=== PATIENT | male | born 1970 | race Caucasian/White ===

== ENCOUNTER 2022-02-09 13:04 | Outpatient (CLI) | payer OTHER, SELFPAY ==
--- OUTSIDE RECORDS SUMMARY | 2022-02-09 13:07 | XMS_ITS | Clinical Summary ---
:1970 Author Organization [facility] Address [address] [place] [address] Care Team Providers Name Role Phone Unavailable Primary Care Provider Unavailable Source Comments Patient records contain information from all sites at [facility]. For routine questions regarding patient records, call [phone] during business hours, M-F 8:00 AM - 5:00 PM Central Time. Record requests for emergency care only can be directed to [phone] at any time.[facility] Social History Tobacco Use Types Packs/Day Years Used Date Smoking Tobacco: Never Assessed Sex Assigned at Date Recorded Not on file Plan of Treatment Health Maintenance Due Date Last Done Comments CT Colonography 1970 Cologuard 1970 Colonoscopy 1970 Colorectal Cancer Screening 1970 FIT 1970 Fasting Glucose for Diabetes 1970 Screening HIV Screening 1970 Hepatitis B Vaccines (1 of 3 1969 - 3-dose series) Hepatitis C Screening 1970 Lipid (Cholesterol) Screening 1970 Zoster Vaccines (1 of 2) 12/01/2019 COVID-19 Vaccine (3 - Booster 11/12/2020 09/17/2020, for Pfizer series) 08/27/2020 Depression Screening (Annual 04/12/2021 PHQ-2) Influenza Vaccine (#1) 2022 01/09/2021, 06/13/2020, 01/23/2019 DTaP,Tdap,and Td Vaccines (2 01/07/2026 01/08/2016, - Td or Tdap) 06/29/2002 Pneumococcal vaccine (0-64 Aged Out No lo nger eligible based years) on patient's age to complete this to [facility] Insurance Payer Benefit Plan Subscriber ID Effective Dates Phone Address Type / Group [facility] [id number] 2021-Presen [phone] [address] Medicaid HMO t [address] [place] [address]
--- OUTSIDE RECORDS SUMMARY | 2022-02-09 13:07 | XMS_ITS | Clinical Summary ---
:1970 Author Organization [facility] [place] [address] Care Team Providers Name Role Phone Porsha Mariein Primary Care Provider Unavailable Allergies Active Allergy Reactions Severity Noted Date Comments Atorvastatin Other - Describe In Comment Field Medium 014 Myalgia Medications Medication Sig Dispensed Refills Start Date End Date Status omeprazole (PRILOSEC) 40 Take 1 capsule 30 capsule 11 7 Active mg Delayed-Release by mouth once capsuleIndications: daily. Take Gastroesophageal reflux 30-60 minutes disease, esophagitis before a presence not specified meal/food once a day. escitalopram oxalate Daily 0 12/25/2019 Active (LEXAPRO) 20 mg tablet Active Problems Problem Noted Date Sensorineural hearing loss, bilateral 02/11/2021 Chemical dependency - Methamphetamine 08/17/2014 Overview: He went through treatment June and 2014. No opiates. Bipolar affective disorder 12/04/2013 Anxiety 12/04/2013 Overview: Rule out OCD Vitamin D deficiency 09/13/2013 Overview: 12.5 on 09/12/13. Started on replacement t herapy. Should be rechecked in 8 weeks. Pure hypercholesterolemia 01/26/2012 Reactive airway disease 11/12/2011 GE reflux 11/12/2011 Overview: EGD 03/2012 reflux, no follow up needed EGD 12/2016 reflux Chest discomfort 11/05/2011 Tobacco abuse 11/05/2011 Family history of ischemic heart disease 11/05/2011 Resolved Problems Problem Noted Date Resolved Date Other diseases of lung, not elsewhere classified 02/25/2007 11/12/2011 EXAMINATION, ROUTINE MEDICAL 2000 11/12/2011 Encounters Date Type Specialty Care Team Description 12/25/2021 Office Visit [facility] (Dome in ear MD (Right)) 12/25/2021 Office Visit [facility]ie [facility] (Dome in right ear , 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) 12/25/2021 Travel from Last 3 Months Immunizations Name Administration Dates Next Due Td (Age >=7 Years) 06/29/2002 Tdap 01/08/2016 Family History Medical History Relation Name Comments Diabetes Father Hypertension Father Heart Disease Maternal Grandfather OR Cancer-breast Maternal Grandmother Cancer Paternal Grandmother Relation Name Status Comments Father Maternal Grandfather (Age 72) OR Maternal Grandmother cancer Paternal Grandfather alcoholism Paternal Grandmother cancer Social History Tobacco Use Types Packs/Day Years Used Date Light Tobacco Smoker Cigarettes 0.25 Smokeless Tobacco: Never Used Tobacco Cessation: Counseling Given: Yes Comments: 5 or 6 cigs per day Alcohol Use Standard Drinks/Week Comments Yes 0.8 (1 standard drink = 0.6 oz pure alco hol) rarely Sex Assigned at Date Recorded Not on file Obstetrics History Last Filed Vital Signs Vital Sign Reading Time Taken Comments Blood Pressure 156/88 03/26/2020 4:42 PM [employer] Pulse 90 03/26/2020 4:42 PM [facility] Temperature 36.7 ??C (98 ??F) 03/26/2020 4:49 PM [facility] [employer] Respiratory Rate 20 03/26/2020 4:42 PM [facility] Oxygen Saturation 98% 03/26/2020 4:42 PM [employer] Inhaled Oxygen Concentration - - Weight 99.8 kg (220 lb) 03/26/2020 4:38 PM [facility] [employer] Height 185.4 cm (6' 1) 03/26/2020 4:38 PM [facility] Body Mass Index 29.03 03/26/2020 4:38 PM [employer] Plan of Treatment Upcoming Encounters Date Type Specialty Care Team Description 02/19/2022 Office Visit Billie Lyle [facility] [address] [place], [place] [address] (Wo rk) Health Maintenance Due Date Last Done Comments Hepatitis C screening for age 0812/01/1987 18-79 Colonoscopy through age 75 2014 Lipids for age 45-75 03/11/2017 03/11/2012, 03/11/2012, 11/06/2011 Depression screening for age 12+ 10/15/2017 10/15/2016 BMI (ht and wt on same day) for 11/25/2019 11/24/2018, 07/09/2016, age 18+ 10/15/2016, Additional history exists Zoster (shingles) series for age 0812/01/2019 50+ (1 of 2) COVID-19 vaccine series (3 - 11/12/2020 09/17/2020, 021 Booster for Pfizer series) Influenza for age 50-64 12/11/2021 Tetanus booster 01/07/2026 01/08/2016, 06/29/2002 Tdap Completed 01/08/2016 Medical Devices Implanted Type Area System Architect Device Shelf Model / Identifier Expiration Serial / Date Lot Stent Uret [id number] - [id number] Left: [employer] [id number] / Implanted: Qty: 1 on 08/09/2014 at [facility] [employer] / [id number] Results Not on filefrom Last 3 Months Insurance Payer Benefit Plan / Subscriber ID Effective Dates Phone Addre ss Type Group [employer] OF [id number] 2014-Presen [address] [facility] [place] [address] [employer] [id number] 2021-Presen [address] [place] [address] [facility] [id number] 2021-Presen [address] [place] [address] [phone] (Home) [place] [id number] [employer] Personal/Family Self 1970 [phone] (Home) [place] [phone] [employer] Motor Vehicle Self 1970 [id number] (Home) [place] [phone] [employer] [facility] Employer 04/12/[address] (Home) [place] [phone] [id number] (Work) [employer] Workers Comp Self 1970 [id number] (Home) [place] [id number] Advance Directives Latest Code Status on File Code Status Date Activated Date Inactivated Comments Full Code 11/05/2011 2:34 PM 11/06/2011 2:34 PM Care Teams Sap Ppm Consultant Relationship Specialty Start Date End Date Mariano Marie PCP - General 03/26/20
--- OUTSIDE RECORDS SUMMARY | 2022-02-09 13:07 | XMS_ITS | Encounter Summary ---
:[address] [facility] Address [address] [place] [address] Care Team Providers Name Role Phone Unavailable Primary Care Provider Unavailable Encounter Details Date Type Department Care Team Description 08/07/2020 Orders Only [facility] Sa rowan Camacho M.D. [address] [place], [place] [phone] (Wo rk) Social History Tobacco Use Types Packs/Day Years Used Date Smoking Tobacco: Never Assessed Sex Assigned at Date Recorded Not on file documented as of this encounter Plan of Treatment Not on filedocumented as of this encounter Visit Diagnoses Not on filedocumented in this encounter
--- NOTE | 2022-02-09 13:45 | MR_ITS ---
[facility] [address] [facility] [address] Phone:?[phone] Fax:?[phone] Referring Physician Information: Joby Kent M.D. [address] [employer] [address] Phone:?[phone] Fax:?[phone] Patient:Taina aLw D.O.B:?1970 Sex:?Male Phone:?[phone] [facility] MRN:?[id number] Exam Date:?02/09/2022 ? EXAM: MRI of the LEFT SHOULDER, without contrast CLINICAL INFORMATION: Male, 51 years old, with left shoulder pain. INDICATION: Evaluate for internal derangement. PRIOR SURGERY: History of subacromial decompression. PLAIN FILMS: None available. COMPARISONS: No prior MRIs available. TECHNICAL INFORMATION: Using a 1.5T MR scanner and a localizing surface coil: coronal obliques: PD, T2, STIR sagittal obliques: PD, T2 axials: PD, T2 SEDATION: None CONTRAST: None FINDINGS: Bones: Proximal humerus: No fracture or marrow edema/pathology. No humeral Hill-Sachs or reverse Hill-Sachs lesion/impaction or contusion. Glenoid: No fracture or marrow edema/pathology. No osseous Bankart lesion. Rotator cuff and muscles/tendons: Supraspinatus: Mild supraspinatus tendinopathy, with bursal surface fraying, but without discrete tear. Infraspinatus: No tendinopathy, tear or atrophy. Teres minor: No tendinopathy, tear or atrophy. Subscapularis: Moderate tendinopathy of the superior distal subscapularis with partial-thickness articular surface tearing over an area measuring 2.1 cm superoinferior by 2.4 cm mediolateral and involving approximately 50% of the tendon thickness (sagittal T2 series 8 image 18 and axial PD series 3 image 47). Deltoid: No strain or atrophy. Coracoacromial arch: Acromion morphology: Status post anterior acromioplasty for subacromial decompression, with good result. No os acromiale. Acromiohumeral space: The acromiohumeral space is decompressed.. Coracohumeral space: The coracohumeral space is within normal limits. Acromioclavicular joint: Joint: Status post AC joint resection for subacromial decompression, with good result. Ligaments: Coracoclavicular ligaments are intact. Bursae: Subacromial-subdeltoid: Mild-moderate subacromial-subdeltoid bursal thickening/edema. Subcoracoid: No convincing subcoracoid bursal thickening/bursitis. Biceps tendon: The long head of the biceps tendon is present within the bicipital groove. Mild tendinopathy and fraying of the intra-articular biceps long head tendon, without discrete split/tear (sagittal PD series 7 images 8- 16). Glenohumeral joint: Effusion/cyst: No significant glenohumeral joint effusion. Articular cartilage: Humeral head: Mild thinning of the articular cartilage throughout the medial aspect of the humeral head with minimal inferomedial marginal osteophytosis. Glenoid: Mild thinning of the glenoid articular cartilage, with mild posterior marginal osteophytosis. Loose bodies: No discrete intra-articular body within the joint. Labrum:?Intrasubstance degeneration fraying of the superior and anterior labrum, which is of doubtful clinical significance. No paralabral cyst. Inferior glenohumeral ligament/axillary pouch:?Intact. The axillary pouch is normal in thickness and signal. No evidence of adhesive capsulitis or capsular injury. IMPRESSION: 1. Moderate subscapularis tendinopathy with a 2.1 x 2.4 cm area of intermediate grade partial-thickness articular surface tearing along the superior myotendinous junction. 2. Mild supraspinatus tendinopathy, without tear. 3. Mild tendinopathy of the intra-articular biceps long head tendon, without split/tear. 4. Mild osteoarthritis of the glenohumeral joint. 5. Intrasubstance degeneration fraying of the superior and anterior labrum, which is of doubtful clinical significance. 6. Status post anterior acromioplasty and AC joint resection for subacromial decompression, with good result. However, there is mild-moderate subacromial- subdeltoid bursal inflammation. BC Electronically signed on 02/09/2022 4:13:00 PM by Torsten Kim M.D.
== END 2022-02-09 13:05 | disposition home or self-care (01) ==
PROVIDERS: PCP Family Medicine; Visit Provider Family Medicine
DX: M25.512 Pain in left shoulder (principal); S43.432A Superior glenoid labrum lesion of left shoulder, initial encounter; M19.012 Primary osteoarthritis, left shoulder; G56.92 Unspecified mononeuropathy of left upper limb; M75.52 Bursitis of left shoulder
CPT/HCPCS: 73221

== ENCOUNTER 2022-07-10 09:45 | Outpatient (RCR) | payer OTHER, SELFPAY | END 2022-10-29 23:59 | disposition home or self-care (01) | PROVIDERS: PCP Family Medicine; Visit Provider Orthopaedic Surgery | DX: M19.012 Primary osteoarthritis, left shoulder (principal); Z51.89 Encounter for other specified aftercare | CPT/HCPCS: 97012; 97110; 97140; 97162 ==

== ENCOUNTER 2022-10-20 12:50 | Emergency (ER) | payer MEDICAID, SELFPAY ==
[2022-10-20] VITALS (12 sets, daily range): BP systolic 110–144; BP diastolic 63–93; PULSE 57–74; RESP 11–16; TEMP 36.5; O2SAT 95–98; BMI 32.1
--- NOTE | 2022-10-20 14:54 | CRLHL7_ITS ---
For Patients: As a result of the Cures Act, medical imaging exams and procedure reports are released immediately into your electronic medical record. You may view this report before your referring provider. If you have questions, please contact your health care provider. INDICATION: Chest pressure. TECHNIQUE: Chest 1 views. COMPARISON: None. FINDINGS: Underpenetration Lungs: Normal lung volume. No consolidation. The tracheobronchial tree and hilar structures are unremarkable. Pleura: No pleural effusion or pneumothorax. Heart and Mediastinum: Normal heart size. The great vessels of the thorax are unremarkable. Bones: No acute displaced osseous process. IMPRESSION: No consolidation. Dictated by Bill Soto MD @ 10/20/2022 4:12:47 PM (Electronically Signed)
[2022-10-20 15:43] LABS: Basophils Percent Auto 0.5 % (0.0-3.0); Eosinophils Percent Auto 2.5 % (0.0-7.0); Hemoglobin* 15.5 gm/dL (13.5-17.5); Immature Granulocytes Pct Auto 0.1 %; Lymphocytes Percent Auto 32.9 % (20-44); Mean Corpuscular HGB Conc 33 gm/dL (32-36); Mean Corpuscular Hemoglobin 29 pg (26-34); Mean Corpuscular Volume 87 fL (80-100); Platelet Count* 320 K/uL (140-440); Red Blood Count 5.41 m/uL (4.30-5.90)
[2022-10-20 15:44] LABS: Slide Review Reflex No
[2022-10-20 15:46] LABS: Blood Urea Nitrogen* 18 mg/dL (7-30); Calcium* 9.1 mg/dL (8.4-10.6); Carbon Dioxide* 28 mmol/L (20-32); Chloride* 103 mmol/L (96-114); Estimated Glomerular Filt Rate 91 ml/min; Glucose* 94 mg/dL (60-115); Potassium* 3.7 mmol/L (3.6-5.1); Sodium* 139 mmol/L (135-149)
[2022-10-20 15:47] LABS: Troponin I* < 0.01 ng/mL (0.01-0.04)
[2022-10-20 15:49] LABS: D Dimer Quantitative* 0.37 ug/ml (0.00-0.50)
[2022-10-20 16:01] LABS: NT Pro B Type NatriureticPept* < 20 pg/mL
--- NOTE | 2022-10-20 22:14 | ED.GENADULT ---
HPI - General Adult General Chief complaint: Chest Pain Stated complaint: Chest pain Time Seen by Provider: 10/20/22 15:02 History of Present Illness HPI narrative: [employer] Seen at time where Internet is down and limited patient information available 51-year-old man presenting to the emergency department with concern of chest pressure.? Over last 3-4 days in particular has been rather easily fatigued.? Feels little short of breath.? This isn't like his typical asthma exacerbation.? Does have a cardiac history in the sense that he is noted to have had an UT before.? Does not sound as though any interventions were done.? He describes concurrently a tightness in his mid chest like there is a animal technician on it.? He will intermittently get a singh of tingling this that spreads to his chest go through his whole body.? At this point he says ?I know it sounds like I am on drugs but I have not done that in a while?.? Apparently history of methamphetamine use/abuse.? Sober again over the last year.? Does endorse a history of heartburn and medications for this but this is not what he has been feeling.? At rest at this time he is not short of breath.? No fever or cough or cold symptoms otherwise. Past medical does include GERD.? Reportedly history of UT.? Methamphetamine abuse. Medications include Protonix Statin allergy Vitals are noted blood pressure a bit elevated at 144/87 pulse ox 97% Is pleasant.? Good energy.? Large man.? Jovial.? Breathing easily.? Lungs appear to be clear.? There is no JVD.? Not able to reproduce discomfort to palpation over the chest.? Heart is distant but in a regular rate and rhythm. I reviewed EKG without prior for comparison showing normal sinus rhythm rate of 73.? I do not appreciate acute ischemic changes. Ordered chest x-ray and labs. ?Differential does include pulmonary embolus, pneumothorax, infection, ischemic cardiac event, anxiety, dysrhythmia.? 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 Related Data Home Medications Medication Instructions Recorded Confirmed fluticasone propionate 50 2 spray intranasal DAILY 11/03/22 11/03/22 mcg/actuation nasal spray,suspension Previous Rx's Medication Instructions Recorded omeprazole 40 mg capsule,delayed 40 mg PO DAILY #90 caps 11/03/22 release varenicline 0.5 mg (11)-1 mg (42) See Rx Instructions PO PER PKG DIR 11/03/22 tablets in a dose pack #53 ea varenicline 1 mg tablet 1 mg PO BID #56 tabs 11/03/22 Allergies Allergy/AdvReac Type Severity Reaction Status Date / Time atorvastatin Allergy Unknown joint aches Verified 11/03/22 09:19 PFSH PFSH Surgical History Status post arthroscopy of left shoulder Status post carpal tunnel release Family History Other Esophageal cancer Social History (Updated 02/02/22 @ 12:06 by Yuly Amado PSR) Narrative: Smoker Smoking Status: Former smoker How often do you have a drink containing alcohol: monthly or less How often do you have six or more drinks on one occasion: Never AUDIT-C Alcohol total score: 1 Non-prescribed substance use: former substance user Little interest or pleasure in doing things: not at all Feeling down, depressed, or hopeless: several days Exam Const: Vital Signs, click to edit/add: Vital Signs - 24 hr 10/20/22 14:00 10/20/22 14:30 10/20/22 15:00 Temperature Pulse Rate Pulse Rate [Pulse Oximeter] 70 59 L Respiratory Rate 11 L Blood Pressure Blood Pressure [Ri ght Upper Arm] 110/63 140/74 H Pulse Oximetry 97 98 96 Oxygen Delivery Me thod Room Air Room Air 10/20/22 15:05 10/20/22 15:15 10/20/22 15:31 Temperature Pulse Rate 58 L 58 L 60 Pulse Rate [Pulse Oximeter] Respiratory Rate Blood Pressure Blood Pressure [Ri ght Upper Arm] Pulse Oximetry 97 95 96 Oxygen Delivery Me thod 10/20/22 15:32 10/20/22 15:33 10/20/22 15:45 Temperature Pulse Rate 59 L 60 57 L Pulse Rate [Pulse Oximeter] Respiratory Rate Blood Pressure 143/78 H Blood Pressure [Ri ght Upper Arm] Pulse Oximetry 96 96 97 Oxygen Delivery Vt thod 10/20/22 15:49 10/20/22 16:00 10/20/22 16:03 Temperature 97.7 F Pulse Rate 66 57 L Pulse Rate [Pulse Oximeter] 74 Respiratory Rate 16 Blood Pressure 131/93 H Blood Pressure [Ri ght Upper Arm] 144/87 H Pulse Oximetry 97 98 96 Oxygen Delivery Me thod Room Air Course Vital Signs Vital signs: Initial Vital Signs Pulse Oximetry 97 10/20/22 14:00 Vital Signs Pulse Oximetry 97 10/20/22 14:00 Temperature 97.7 F 10/20/22 15:49 Pulse Rate 57 L 10/20/22 16:03 Respiratory Rate 16 10/20/22 15:49 Blood Pressure 131/93 H 10/20/22 16:03 Pulse Oximetry 96 10/20/22 16:03 Oxygen Delivery Method Room Air 10/20/22 15:49 Medical Decision Making MDM Narrative Medical decision making narrative: Labs reassuring. No further events. Given history may require further evaluation. Really could be multifactorial. Possibly related to GERD/reflux esophagitis, smoking with reactive airway, anxiety/stress, ischemic heart disease. See patient discharge plan. Lab Data Lab results reviewed: Yes I reviewed the patient's lab results Labs: Lab Results 10/20/22 10/20/22 Range/Units 14:10 14:42 WBC 7.30 (4.50-11.00) K/uL RBC 5.41 (4.30-5.90) m/uL Hgb 15.5 (13.5-17.5) gm/dL Hct 47.0 (37.0-53.0) % MCV 87 (80-100) fL MCH 29 (26-34) pg MCHC 33 (32-36) gm/dL RDW Coeff of Unique 13.0 (11.5-15.5) % Plt Count 320 (140-440) K/uL Neut % (Auto) 53.0 (42.0-72.0) % Lymph % (Auto) 32.9 (20-44) % [place] % (Auto) 11.0 (0.0-11.0) % Eos % (Auto) 2.5 (0.0-7.0) % Baso % (Auto) 0.5 (0.0-3.0) % Neut # (Auto) 3.90 (1.7-7.0) K/uL Lymph # (Auto) 2.40 (0.90-2.90) K/uL [place] # (Auto) 0.80 (0.00-0.90) K/UL Eos # (Auto) 0.20 (0.00-0.50) K/uL Baso # (Auto) 0.00 (0.00-0.30) K/uL Abs Immat Gran (auto) 0.00 (0.00-0.30) K/uL Imm/Tot Granulo (auto) 0.1 % D-Dimer Quant (PE/DVT) 0.37 (0.00-0.50) ug/ml Sodium 139 (135-149) mmol/L Potassium 3.7 (3.6-5.1) mmol/L Chloride 103 (96-114) mmol/L Carbon Dioxide 28 (20-32) mmol/L BUN 18 (7-30) mg/dL Creatinine 1.0 (0.5-1.5) mg/dL Estimated GFR 91 ml/min Glucose 94 (60-115) mg/dL Calcium 9.1 (8.4-10.6) mg/dL Troponin I < 0.01 L (0.01-0.04) ng/mL NT-Pro-B Natriuret Pep < 20 pg/mL POC Troponin I 0.00 L (0.01-0.04) ng/ml ECG Data Attestation: I personally reviewed and interpreted this ECG as follows: Discharge Plan Discharge Clinical Impression: Chest pressure Patient Disposition: Home w/ Parent or Adult Condition: Improved Additional Instructions: Relieved that your evaluation here today was normal. It certainly may be your GERD flaring from time to time that is causing these symptoms. Is hard to know for sure. I would ask you to follow-up in primary care and discuss next steps in evaluation. If you have never had an upper endoscopy, yes it might be time. Consider also further cardiac evaluation. Otherwise return for marked increase in persistent pain, persistent increasing shortness of breath. Prescriptions: No Action fluticasone propionate 50 mcg/actuation spray,suspension 2 spray intranasal DAILY omeprazole 40 mg capsule,delayed release(DR/EC) 40 mg PO DAILY Qty: 90 3RF varenicline 0.5 mg (11)- 1 mg (42) tablets,dose pack See Rx Instructions PO PER PKG DIR Qty: 53 0RF Rx Instructions: PO PER PKG DIR varenicline 1 mg tablet 1 mg PO BID Qty: 56 4RF Follow Up/Referrals: Joby Kent MD [Primary Care Provider] - Stand Alone Forms: Bleacher Report Info Instructions
== END 2022-10-20 16:53 | disposition home or self-care (01) ==
PROVIDERS: Emergency Provider Family Medicine; PCP Family Medicine
DX: R07.9 Chest pain, unspecified (principal)
CPT/HCPCS: 36415; 71045; 80048; 83880; 84484; 85025; 85379; 93005; 94761; 99284

== ENCOUNTER 2022-11-19 07:43 | Outpatient (CLI) | payer MEDICAID, SELFPAY ==
--- NOTE | 2022-11-19 08:25 | W.ANESCHARGE ---
Anesthesia Charges Start Date/Time Anesthesia Start Date: 11/19/22 Anesthesia Start Time: 08:30 Stop Date/Time Anesthesia Stop Date: 11/19/22 Anesthesia Stop Time: 09:14
--- NOTE | 2022-11-19 09:18 | W.ANESCHARGE ---
Anesthesia Charges Start Date/Time Anesthesia Start Date: 11/19/22 Anesthesia Start Time: 08:30 Stop Date/Time Anesthesia Stop Date: 11/19/22 Anesthesia Stop Time: 09:14
== END 2022-11-19 07:44 | disposition home or self-care (01) ==
LOC: OP CLINIC 07:45
PROVIDERS: PCP Family Medicine; Visit Provider Internal Medicine
DX: Z12.11 Encounter for screening for malignant neoplasm of colon (principal); K63.5 Polyp of colon; K57.30 Diverticulosis of large intestine without perforation or abscess without bleeding; K21.9 Gastro-esophageal reflux disease without esophagitis; K22.89 Other specified disease of esophagus; R12 Heartburn
CPT/HCPCS: 43239; 45380; 813; 88305; J2704

== ENCOUNTER 2023-10-09 04:54 | Emergency (ER) | payer MEDICAID, SELFPAY ==
[2023-10-09 05:00] VITALS: BP 155/74; PULSE 79; RESP 18; TEMP 36.7; O2SAT 99; BMI 32.1
--- NOTE | 2023-10-09 05:00 | CRLHL7_ITS ---
For Patients: As a result of the Cures Act, medical imaging exams and procedure reports are released immediately into your electronic medical record. You may view this report before your referring provider. If you have questions, please contact your health care provider. Indication: Injury Technique: A total of three-view of the left elbow were acquired. Comparison: None Findings: Bones: Alignment is normal. No fractures or bone lesions. Joint spaces: No dislocation. No joint effusion. Mild osteoarthritis Soft tissues: Unremarkable. Impression: No acute fracture, dislocation or destructive process. Mild osteoarthritis. Dictated by Amos Dinh MD @ 10/09/2023 5:49:08 AM (Electronically Signed)
--- NOTE | 2023-10-09 05:00 | CRLHL7_ITS ---
For Patients: As a result of the Century Cures Act, medical imaging exams and procedure reports are released immediately into your electronic medical record. You may view this report before your referring provider. If you have questions, please contact your health care provider. Indication: Injury Technique: A total of two views of the left humerus were acquired. Comparison: None Findings: Bones: Alignment is normal. No fractures or bone lesions. Joint spaces: No dislocation noted. Osteoarthritis identified at the incidentally visualized elbow joint. Soft tissues: Soft tissue calcification near the humeral head probably related to chronic calcific tendinitis of the rotator cuff. Impression: No acute fracture, dislocation or destructive process.Nonacute appearing findings as above. Dictated by Amos Dinh MD @ 10/09/2023 5:50:09 AM (Electronically Signed)
--- NOTE | 2023-10-09 05:32 | CRLHL7_ITS ---
For Patients: As a result of the Cures Act, medical imaging exams and procedure reports are released immediately into your electronic medical record. You may view this report before your referring provider. If you have questions, please contact your health care provider. Indication: Injury Technique: A total of three views of the left shoulder were acquired. Comparison: None Findings: Bones: Alignment is normal. No fractures or bone lesions. Joint spaces: Unremarkable. Soft tissues: Soft tissue calcification likely representing chronic calcific tendinitis of the rotator cuff Impression: No acute fracture, dislocation or destructive process.Incidental chronic calcific tendinitis of the rotator cuff. Dictated by Amos Dinh MD @ 10/09/2023 6:01:11 AM (Electronically Signed)
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
[2023-10-09 05:57] VITALS: TEMP 36.7
[2023-10-09] MEDS: IBUPROFEN 200 MG TABLET 600 MG PO (05:57)
--- OUTSIDE RECORDS SUMMARY | 2023-10-09 05:57 | XMS_ITS | Clinical Summary ---
Author Organization [facility] Address [place], [place] [address] Care Team Providers Care Nurse Anesthetist Name Role Phone Mariano Marie Primary Care Provider Unavailabl e Allergies Active Allergy Reactions Criticality Noted Date Comments Atorvastatin Other - Describe In Comment Field Medium 06/06/2013 Myalgia Medications Medication Sig Dispensed Refills Start Date End Date Status omeprazole (PRILOSEC) 40 mg Delayed-Release capsuleIndications:Ga stroesophageal reflux disease, esophagitis presence not specified Take 1 capsule by mouth once daily. Take 30-60 minutes before a meal/food once a day. 30 capsule 11 12/04/2016 Active escitalopram oxalate (LEXAPRO) 20 mg tablet Daily 12/25/2019 Active Active Problems Problem Noted Date Diagnosed Date Sensorineural hearing loss, bilateral 02/11/2021 Chemical dependency - Methamphetamine 08/17/2014 Overview: He went through treatment June and July 2014. No opiates. Bipolar affective disorder 12/04/2013 Anxiety 12/04/2013 Overview: Rule out OCD Vitamin D deficiency 09/13/2013 Overview: 12.5 on 09/12/13. Started on replacement therapy. Should be rechecked in 8 weeks. Pure hypercholesterolemia 01/26/2012 Reactive airway disease 11/12/2011 GE reflux 11/12/2011 Overview: EGD 03/2012 reflux, no follow up needed EGD 12/2016 reflux Chest discomfort 11/05/2011 Tobacco abuse 11/05/2011 Family history of ischemic heart disease 012 Resolved Problems Problem Noted Date Diagnosed Date Resolved Date Other diseases of lung, not elsewhere classified 02/25/2007 11/12/2011 EXAMINATION, ROUTINE MEDICAL 2000 11/12/2011 Encounters Date Type Department Care Team Description 10/08/[address] [phone] Betsy Samson AuD Hearing Aid 09/28/2023 8:30 AM CDT Office Visit [facility] [address] [place] [address] Harvey Mendez, Kacie Hearing Aid 09/28/[address] [phone] Betsy Samson AuD Prior Authorization 09/28/2023 Travel 09/27/2023 Procedure Only [address] [phone] Betsy Samson [facility] (VELIZ prior authorization) 09/27/[address] [phone] Betsy Samson AuD [facility] (Replacement hearing aids) 08/25/2023 2:30 PM CDT Office Visit [facility] [address] [place] [address] Betsy Samson AuD [facility] (VELIZ check (fit EMs, electronic engraver)) 08/25/2023 Travel 08/12/[address] [address] Betsy Samson AuD 07/28/2023 10:00 AM CDT Office Visit [address] [address] Betsy Samson AuD [facility] (VELIZ check) 07/28/2023 Telephone [facility] [address] [place] [address] Betsy Samson AuD Hearing [facility] (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) 07/28/2023 Travel 07/21/[address] [address] Harvey Mendez, AuD Hearing Aid from Last 3 Months Immunizations Name Administration Dates Next Due Td (Age >=7 Years) 06/29/2002 Tdap 01/08/2016 Family History Medical History Relation Name Comments Diabetes Father Hypertension Father Heart Disease Maternal Grandfather [place] Cancer-breast Maternal Grandmother Cancer Paternal Grandmother Relation Name Status Comments Father Maternal Grandfather (Age 72) [place] Maternal Grandmother cancer Paternal Grandfather alcohol ism Paternal Grandmother cancer Social History Tobacco Use Types Packs/Day Years Used Date Smoking Tobacco: Light Smoker Cigarettes Smokeless Tobacco: Never Tobacco Cessation:Counseling Given: Yes Comments:5 or 6 cigs per day Alcohol Use Standard Drinks/Week Comments Yes 0.8 (1 standard drink = 0.6 oz p ure alcohol) rarely Sex and Gender Information Value Date Recorded Sex Assigned at Not on file Gender Identity Not on file Sexual Orientation Not on file Obstetrics History Last Filed Vital Signs Vital Sign Reading Time Taken Comments Blood Pressure 156/88 03/26/2020 4:42 PM [employer] Pulse 90 03/26/2020 4:42 PM [employer] Temperature 36.7 ??C (98 ??F) 03/26/2020 4:49 PM [employer] Respiratory Rate 20 03/26/2020 4:42 PM [employer] Oxygen Saturation 98% 03/26/2020 4:42 PM [employer] Inhaled Oxygen Concentration - - Weight 99.8 kg (220 lb) 03/26/2020 4:38 PM [employer] Height 185.4 cm (6' 1) 03/26/2020 4:38 PM [employer] Body Mass Index 29.03 03/26/2020 4:38 PM [employer] Plan of Treatment Health Maintenance Due Date Last Done Comments HIV for age 15-65 1984 Hepatitis C screening for age 18-79 12/01/1987 Colonoscopy through age 75 2014 Lipids for age 45-75 03/11/2017 03/11/2012, 03/11/2012, 11/06/2011 Depression screening for age 12+ 10/15/2017 10/15/2016 BMI (ht and wt on same day) for age 18+ 11/25/2019 11/24/2018, 11/04/2016, 10/15/2016, Additional history exists Zoster (shingles) series for age 50+ (1 of 2) 12/01/2019 COVID-19 vaccine series (3 - 2023-24 season) 2022 09/17/2020, 08/27/2020 Influenza for age 50-64 12/12/2023 Tetanus booster 01/07/2026 01/08/2016, 06/29/2002 Tdap Completed 01/08/2016 Pneumococcal series for age 6-64 Aged Out No longer eligible based on patient's age to complete this topic Medical Devices Implanted Type Area Photographer Lithographic Device Identifier Shelf Expiration Date Model / Serial / Lot Stent Uret [id number] - [id number] Implanted:Qty: 1 on 08/09/2014 at [facility] Left: [employer] [id number] / / [id number] Procedures Procedure Name Priority Date/Time Associated Diagnosis Comments LIPID PANEL W REFLEX MEASURED LDL Routine 03/11/2012 5:01 PM [employer] Pure hypercholesterolemia from Last 3 Months or Most Recently Relevant to Health Maintenance Results * (ABNORMAL) LIPID PANEL W REFLEX MEASURED LDL (03/11/2012 5:01 PM [employer]) CHOLESTEROL,TOTAL 215(H) 100 - 199 mg/dL 03/11/2012 5:45 PM [facility] TRIGLYCERIDES 578(H) <150 mg/dL 03/11/2012 5:45 PM [facility] HDL CHOLESTEROL 30(L) >40 mg/dL 2 5:45 PM [facility] NON-HDL CHOLESTEROL 185(H) <145 mg/dl 03/11/2012 5:45 PM [facility] CHOL/HDL RATIO 7.17(H) <4.50 03/11/2012 5:45 PM [facility] LDL CHOLESTEROL 2 5:45 PM [facility] Comment:Invalid LDL when Tri g >400, reflexed to measured LDL PATIENT STATUS NON-FASTI NG 03/11/2012 5:45 PM [facility] Blood specimen (specimen) BLOOD SPECIMEN / Unknown 03/11/2012 5:01 PM [employer] 03/11/2012 5:01 PM [employer] Christen Roa MD [facility]MI[facility] [address] [place] [address] from Last 3 Months or Most Recently Relevant to Health Maintenance Advance Directives * Full Code (Latest Code Status on File) Date Activated Date Inactivated Comments 11/05/2011 2:34 PM 11/06/2011 2:34 PM Care Teams Nurse Anesthetist Relationship Specialty Start Date End Date Mariano Marie PCP - General 03/26/20
[2023-10-09 06:53] VITALS: BP 155/74; PULSE 79; RESP 18; TEMP 36.7
== END 2023-10-09 06:53 | disposition home or self-care (01) ==
LOC: ED 05:54
PROVIDERS: Emergency Provider Family Medicine; PCP Family Medicine
DX: M25.512 Pain in left shoulder (principal)
CPT/HCPCS: 73030; 73060; 73080; 99283; A9270